=== PATIENT | female | born 1960 | race Caucasian/White ===

== ENCOUNTER 2019-04-07 13:15 | Outpatient (CLI) | payer MEDICARE ==
--- NOTE | 2019-04-07 14:38 | BD ---
DEXA BONE DENSITY STUDY: Date: 04/07/19 HISTORY: Osteoporosis screening. COMPARISON: DEXA study from 2017. FINDINGS: Lumbar Spine: BMD (g/cm2) L1 0.766 T-Score: -2.0 Z-Score: -1.0 L2 0.819 T-Score: -1.9 Z-Score: -0.7 L3 0.849 T-Score: -2.1 Z-Score: -0.8 L4 0.897 T-Score: -1.5 Z-Score: -0.2 L1-L4 0.839 T-Score: -1.9 Z-Score: -0.7 Left Femoral Neck: 0.530 T-Score: -2.9 Z-Score: -1.7 Total Femur: 0.683 T-Score: -2.1 Z-Score: -1.3 WHO Classification: Osteoporosis. IMPRESSION: Osteoporosis with decreased bone mineral density from the comparison exam. POS: [id number]
== END 2019-04-07 13:16 | disposition home or self-care (01) ==
LOC: BICMAMMO 13:15
PROVIDERS: ATTEND Allergy & Immunology Allergy
DX: M81.0 Age-related osteoporosis without current pathological fracture (principal)
CPT/HCPCS: 77080